=== PATIENT | male | born 1955 | race Caucasian/White ===

== ENCOUNTER 2017-08-05 11:44 | Emergency (ER) | payer MEDICARE, OTHER, MEDICAID ==
[2017-08-05] MEDS: KETOROLAC 60 MG INJ IM (13:32)
[2017-08-05] MEDS: METHOCARBAMOL 750 MG TAB PO (13:33)
[2017-08-05] MEDS: morphine 10 MG INJ IM (13:33)
== END 2017-08-05 16:29 | disposition home or self-care (01) ==
LOC: FTE 11:44
DX: G57.01 Lesion of sciatic nerve, right lower limb (principal); M54.42 Lumbago with sciatica, left side; M85.80 Other specified disorders of bone density and structure, unspecified site; I10 Essential (primary) hypertension; E11.9 Type 2 diabetes mellitus without complications; F17.210 Nicotine dependence, cigarettes, uncomplicated; Z79.4 Long term (current) use of insulin
CPT/HCPCS: 73510; 73562; 96372; 99284-25